=== PATIENT | male | born 1985 | race Caucasian/White ===

== ENCOUNTER 2018-01-14 07:56 | Day surgery (SDC) | payer OTHER ==
--- NOTE | 2018-01-13 18:37 | GHP ---
[f rep st] PREOP HISTORY AND PHYSICAL ADMISSION DIAGNOSIS: Right scrotal mass. HISTORY OF PRESENT ILLNESS: This is a 32-year-old gentleman from [facility] , who referred the patient for a right testicular mass. The mass is 1.6 x 1.9 x 2.2 cm by ultrasound exam of the right testicle. It appears to be malignant. We have discussed with him these issues and he is admitted for a right inguinal or radical orchiectomy. PAST MEDICAL HISTORY: Noncontributory. He denies any prior surgery. CURRENT MEDICATIONS: None. ALLERGIES: None. FAMILY HISTORY: Positive for diabetes. SOCIAL HISTORY: Nonsmoker, nondrinker. No children. IMMUNIZATIONS: Up to date. PHYSICAL EXAMINATION: VITAL SIGNS: Stable. CHEST: Clear. HEART: Regular rate and rhythm. ABDOMEN: Normal. No organomegaly, rebound, or guarding. LOWER EXTREMITIES: Normal. : He has a mass in the right testicle. Left testicle is normal. STUDIES: He has a CAT scan of the abdomen and chest. No pelvic or retroperitoneal lymphadenopathy noted. He has a small right scrotal hydrocele. No pulmonary nodules are noted. He has had laboratory values performed and his BUN is 27, creatinine 1.1. Liver function studies are normal. LDH is 480, normal. Alpha-fetoprotein 2.8 is normal. His beta hCG is less than 0.6, which is normal. PLAN: At the present time, he is admitted for a right inguinal radical orchiectomy. Indications, complications, and differential diagnosis discussed. Written and verbal consent is obtained and he is admitted for the above procedure. /[id number]/MODL MTDD
--- NOTE | 2018-01-14 07:53 | PDHPUP ---
History & Physical Update H&P update statement: This history and physical update is based on an assessment of the patient which was completed after admission or registration (within 24 hours), but prior to the surgery/procedure. H&P update: H&P reviewed & patient examined, no change in patient's condition since H&P completed
[~2018-01-14 07:56] MED LIST: ceFAZolin 2 GM/SWFI 2 GM/20 ML SYR IVP ONE
[2018-01-14] MEDS ORDERED: LR 1,000 ML IV ONE (08:09)
[2018-01-14] MEDS ORDERED: BUPIVACAINE 0.5% 30 ML SDV ONE (09:16)
[2018-01-14] MEDS ORDERED: MIDAZOLAM 2 MG/2 ML VIAL IVP ONE (09:41)
--- NOTE | 2018-01-14 09:42 | PDANEPAE ---
ANE History of Present Illness Patient presents for radical orchiectomy ANE Past Medical History - Cardiovascular History Hx Hypertension: No Hx Arrhythmias: No Hx Chest Pain: No Hx Coronary Artery / Peripheral Vascular Disease: No Hx CHF / Valvular Disease: No Hx Palpitations: No - Pulmonary History Hx COPD: No Hx Asthma/Reactive Airway Disease: No Hx Recent Upper Respiratory Infection: No Hx Oxygen in Use at Home: No Hx Sleep Apnea: No Sleep Apnea Screening Result - Last Documented: Negative - Neurologic History Hx Cerebrovascular Accident: No Hx Seizures: No Hx Dementia: No - Endocrine History Hx Diabetes: No - Renal History Hx Renal Disorders: No - Liver History Hx Hepatic Disorders: No - Neurological & Psychiatric Hx Hx Neurological and Psychiatric Disorders: No - Cancer History Hx Cancer: No Cancer History Comment: R ORCHIECTOMY - Congenital Disorder History Hx Congenital Disorders: No - GI History Hx Gastrointestinal Disorders: No - Other Health History Other Health History: NEG - Chronic Pain History Chronic Pain: Yes (KNEE PAIN) - Surgical History Prior Surgeries: NONE ANE Review of Systems Review of Systems: - Exercise capacity METS (RN): 5 METS ANE Patient History - Allergies Allergies/Adverse Reactions: No Known Allergies Allergy (Unverified 01/13/18 17:22) - Home Medications Home medications: home medication list seen and reviewed Home Medications: Herbals/Supplements -Info Only 01/13/18 [Last Taken Unknown] - NPO status NPO Status: no food or drink >8 hours NPO Since - Liquids (Date): 01/14/18 NPO Since - Liquids (Time): 07:30 NPO Since - Solids (Date): 01/13/18 NPO Since - Solids (Time): 23:00 - Anes Hx Anes Hx: no prior problems - Smoking Hx Smoking Status: Never smoked - Family Anes Hx Family Hx Anesthesia Complications: NONE ANE Labs/Vital Signs - Vital Signs Blood Pressure: 107/85 Heart Rate: 74 Respiratory Rate: 14 O2 Sat (%): 99 Height: 180.34 cm Weight: 89.358 kg ANE Physical Exam - Airway Neck exam: FROM Mallampati Score: Class 2 Mouth exam: normal dental/mouth exam - Pulmonary Pulmonary: no respiratory distress - Cardiovascular Cardiovascular: regular rate and rhythym - ASA Status ASA Status: I ANE Anesthesia Plan Anesthesia Plan: general endotracheal anesthesia (RBA discussed)
[2018-01-14] MEDS ORDERED: MIDAZOLAM 2 MG/2 ML VIAL ONE (09:43)
[2018-01-14] MEDS ORDERED: PROPOFOL 200 MG/20 ML VIAL ONE (09:44)
[2018-01-14] MEDS ORDERED: fentaNYL 100 MCG/2 ML INJ ONE ×2 (09:44→10:33)
[2018-01-14] MEDS ORDERED: PROPOFOL/EMULSION 500 MG/50 ML BOTTLE IV ONE (09:45)
[2018-01-14] MEDS ORDERED: ROCURONIUM 50 MG/5 ML VIAL ONE ×2 (09:54)
[2018-01-14] MEDS ORDERED: ONDANSETRON 4 MG/2 ML VIAL ONE (10:16)
[2018-01-14] MEDS ORDERED: DEXAMETHASONE 4 MG/ML VIAL ONE (10:16)
[2018-01-14] MEDS ORDERED: SUGAMMADEX SODIUM 200 MG/2 ML VIAL IVP ONE (11:05)
[2018-01-14] MEDS ORDERED: KETOROLAC 30 MG/1 ML SDV ONE (11:07)
[2018-01-14] MEDS ORDERED: fentaNYL 100 MCG/2 ML INJ IVP PRN (11:37)
[2018-01-14] MEDS ORDERED: HYDROCODONE/APAP 5/325 TAB PO PRN (11:37)
[2018-01-14] MEDS ORDERED: LR 500 ML IV PRN (11:37)
[2018-01-14] MEDS ORDERED: NALOXONE HCL 0.4 MG/ML INJ IVP PRN (11:37)
[2018-01-14] MEDS ORDERED: ONDANSETRON 4 MG/2 ML VIAL IVP PRN (11:37)
[2018-01-14] MEDS ORDERED: oxyCODONE IR 5 MG TAB PO PRN (11:37)
--- NOTE | 2018-01-14 11:38 | POSTANESTH ---
Post Anesthetic Evaluation Cardiovascular Status: Similar to Pre-Op Cond Respiratory Status: Similar to Pre-op Cond. Level of Consciousness/Mental Status: Can Participate in Eval Pain Control: Adequate, Prn Tx Ordered Nausea/Vomiting Control: Adequate, Prn Tx Ordered Complications Possibly Related to Anesthesia: None Noted
--- NOTE | 2018-01-14 11:40 | POSTOPPROG ---
Post Op Note Date of Operation: 01/14/18 Surgeon: Duarte De Los Santos Anesthesiologist: Rissa Anesthesia: LMA Pre-op Diagnosis: rt testis mass Post-op Diagnosis: same Procedure: ing orch Findings: tumor Inf/Abcess present in the surg proc area at time of surgery?: No EBL: Minimal Specimen(s): testis--dictated
--- NOTE | 2018-01-14 11:45 | GOP ---
[f rep st] OPERATIVE REPORT DATE OF OPERATION: 01/14/2018 SURGEON: Duarte De Los Santos MD ANESTHESIA: General. ANESTHESIOLOGIST: Caleb Kwok MD. PREOPERATIVE DIAGNOSIS: Testis cancer, right side. POSTOPERATIVE DIAGNOSIS: Testis cancer, right side. PROCEDURE PERFORMED: Right radical inguinal orchiectomy. FINDINGS: SPECIMENS: Right testicle, spermatic cord, and tunics. ESTIMATED BLOOD LOSS: Less than 10 cc. DESCRIPTION OF PROCEDURE: Underwent general anesthesia, prepped and draped in normal sterile fashion in the supine position. Had a right inguinal incision made after appropriate time-out and local inf iltration with local anesthetic. Went through skin, Camper, Carlos Manuel fascia layers, and then was able to go inside the external oblique fibers, identified the spermatic cord, and placed a tourniquet arou nd that and, at that point, the vas deferens from the cord, ligated that, and then ligated the cord with suture ligature of 2-0 Vicryl, 2 separate sites, double ligated each side. Then the te sticle was brought out of the right hemiscrotum, tunics intact. Hemostasis with electrocautery. Hem oclips and Vicryl sutures. Specimen was removed. At that point, there were no bleeding sites identi fied. The external oblique fibers were approximated with 3-0 Vicryl, 3-0 Vicryl approximated subcuta neous tissue. Skin was closed with 4-0 Monocryl. Dermabond placed, and sterile dressing was reinfor pipo. At that point, specimen was sent to Pathology. Preoperatively had normal tumor markers, normal CAT scan, ultrasound was abnormal. He will be discharged home to have followup with me in the offic e. I did give him information preoperatively for seminoma, and it appeared to be a seminoma based on physical exam, ultrasound, and having fish flesh appearance on the specimen. /[id number]/MODL
[2018-01-14 12:34] VITALS: BP 109/93
== END 2018-01-14 12:50 | disposition home or self-care (01) ==
LOC: FSGY 07:56
PROVIDERS: ATTEND Specialist
PROC: 0VT90ZZ Resection of Right Testis, Open Approach (ICD-10-PCS; principal; 2018-01-14 09:30)
DX: C62.11 Malignant neoplasm of descended right testis (principal); N43.3 Hydrocele, unspecified
CPT/HCPCS: J0690; J1100; J1885; J2250; J2405; J2704; J3010